=== PATIENT | female | born 1955 | race Caucasian/White ===

== ENCOUNTER → 2020-01-06 | Outpatient (CLI) | payer MEDICARE | END | disposition home or self-care (01) | LOC: CFH 10:22 | PROVIDERS: ATTEND Nurse Practitioner Family | DX: N95.9 Unspecified menopausal and perimenopausal disorder (principal) | CPT/HCPCS: 77080 ==

== ENCOUNTER → 2020-04-22 | Outpatient (CLI) | payer MEDICARE ==
[~2020-04-22] MED LIST: ALBU18HF INH; AMIO200T42 PO; ASPI81TA45 PO; ATOR40TA78 PO; CHOL10003 PO; CLOP75TA PO; ESTR0.6246 VG; ESTR42.53 VG; FAMO20TA7 PO; FURO-92 PO; HYDR-3237 PO; INUL2TAB4 PO; LISI1TAB23 PO; METO25TA35 PO; MULT1TAB57 PO; POTA20TA6 PO
== END | disposition home or self-care (01) ==
LOC: CFH 08:20
PROVIDERS: ATTEND Internal Medicine Cardiovascular Disease
DX: I08.3 Combined rheumatic disorders of mitral, aortic and tricuspid valves (principal); I10 Essential (primary) hypertension; E78.5 Hyperlipidemia, unspecified; Z95.1 Presence of aortocoronary bypass graft
CPT/HCPCS: 93306

== ENCOUNTER 2021-02-07 07:21 | Outpatient (CLI) | payer MEDICARE ==
[~2021-02-07 07:21] MED LIST changes: -MULT1TAB57 PO; +MULT1TAB58 PO; +POTA-143 PO; -POTA20TA6 PO
== END 2021-02-07 23:59 | disposition home or self-care (01) ==
LOC: CFH 07:21
PROVIDERS: ATTEND Nurse Practitioner
DX: Z12.31 Encounter for screening mammogram for malignant neoplasm of breast (principal)
CPT/HCPCS: 77063; 77067